=== PATIENT | female | born 1945 | race Caucasian/White ===

== ENCOUNTER 2017-09-18 00:55 | Observation (INO) ==
[2017-09-18] MEDS ORDERED: ALBUTEROL/IPRATROPIUM 2.5mg-0.5mg/3ml NEB IH ONE (01:07)
--- NOTE | 2017-09-18 02:55 | Emergency Department Report ---
SOB HPI - General Chief Complaint: Shortness of Breath/Dyspnea Stated Complaint: Diff Breathing Time Seen by Provider: 09/18/17 01:06 - History of Present Illness 8-year-old female brought in by EMS with acute dyspnea. Patient has a history of emphysema, stop smoking in 2010. She does have reactions to a and went into the barn to feed her horses today to help her daughter. She has been doing well up until this point. She had a breathing treatment at home which did not help. She continued to feel like she was suffocating and called EMS for transport. On the way in they gave her 3 treatments of Xopenex and Solu-Medrol 125 mg IV. Patient was still requiring 8 L nasal cannula/mask and complaining that she felt that she was suffocating. She was unable to get more than one word or 2 words out at a time due to dyspnea. She's had no fever, has not felt sick. - Related Data Allergies Allergy/AdvReac Type Severity Reaction Status Date / Time Penicillins Allergy Severe Anaphylactic Verified 09/18/17 01:11 Shock adhesive tape Allergy Mild Rash Verified 09/18/17 01:11 latex Allergy Mild Redness of Verified 09/18/17 01:11 Skin Review of Systems All systems: reviewed and negative except as stated PFSH Patient Stated Medical History Migraine Yes Chronic Obstructive Pulmonary Yes Disease (COPD) Gastroesophageal Reflux Yes Disease Osteoarthritis Yes - Social History Smoking status: Former smoker second hand exposure: No Substance use type: does not use Physical Exam - Limitations Limitations: no limitations - General General appearance: alert, anxious, in distress (respiratory distress) - Normal Exams: Head:: Normocephalic without trauma Abdomen:: Bowel sounds positive, soft, non-tender, non-distended, no hepatosplenomegaly, masses or bruits noted Neurological:: Patient is alert, and oriented, cranial nerves, motor/sensory/ cerebellar, exams w/o gross deficits, to observation Psychiatric:: Patient exhibits, appropriate attention, emotion and affect - Respiratory Respiratory exam: Present: respiratory distress, wheezes, prolonged expiratory phase - Cardiovascular Cardiovascular exam: Present: normal rhythm, tachycardia Course Vital Signs Temperature 97.6 F 09/18/17 00:55 Pulse Rate 104 H 09/18/17 00:55 Respiratory Rate 24 09/18/17 00:55 Blood Pressure 132/97 H 09/18/17 00:55 Pulse Oximetry 94 09/18/17 00:55 Temperature 97.6 F 09/18/17 00:55 Pulse Rate 97 09/18/17 01:52 Respiratory Rate 20 09/18/17 01:30 Blood Pressure 132/97 H 09/18/17 00:55 Pulse Oximetry 93 09/18/17 01:30 Shortness of Breath/Dyspnea - [facility] Narrative Medical decision making narrative: Peripheral IV with normal saline. DuoNeb treatment given on arrival and as Solu- Medrol had time to work, patient's breathing improved. Chest x-ray, labs and nasal respiratory PCR ordered. White count is normal, CMP is appropriate. Chest x-ray shows no infiltrate, does show emphysematous change. Patient has coronavirus positive PCR. She is still requiring 2 L nasal cannula in order to appropriately oxygenate, and gets short of breath if she talks. I spoke with hospitalist, patient will be admitted for serial IV steroids and breathing treatments as needed. She'll also be given oxygen supplementation. - Lab Data Result diagrams: 09/18/17 01:18 09/18/17 01:18 Lab Results 09/18/17 09/18/17 09/18/17 Range/Units 01:12 01:18 01:18 WBC 7.9 (4.5-11.0) T/MM3 RBC 4.68 (4.00-5.20) M/MM3 Hgb 14.7 (12-16) GM/DL Hct 46.0 (36-46) % MCV 98.3 (80-100) UM3 MCH 31.4 (26-34) UUG MCHC 32.0 (31-37) GM/DL RDW Std Deviation 43.5 (36.9-50.2) FL Plt Count 220 (130-400) T/MM3 MPV 9.1 L (9.4-12.4) UM3 Immature Gran % (Auto) 0.1 (0.0-0.5) % Neut % (Auto) 60.1 (33-66) % Lymph % (Auto) 25.1 (23-45) % [place] % (Auto) 6.7 (0-9.0) % Eos % (Auto) 7.5 H (0-4) % Baso % (Auto) 0.5 (0-2) % Neut # (Auto) 4.7 (1.8-7.7) T/MM3 Lymph # (Auto) 2.0 (1-4.8) T/MM3 [place] # (Auto) 0.5 (0-0.8) T/MM3 Eos # (Auto) 0.6 H (0-0.5) T/MM3 Baso # (Auto) 0.0 (0-0.2) T/MM3 Abs Immat Gran (auto) 0.01 (0.00-0.03) T/MM3 Turbidity < 20 (0-20) Sodium 147 H (134-144) MEQ/L Potassium 3.9 (3.6-5) MEQ/L Chloride 104 (98-107) MEQ/L Carbon Dioxide 27 (22-30) MEQ/L Anion Gap 16 H (5-15) MEQ/L BUN 15.0 (7-17) MG/DL Creatinine 0.7 (0.7-1.2) mg/dL GFR Calculation 83 BUN/Creatinine Ratio 21 (6-26) RATIO Glucose 131 H (65-110) MG/DL Calculated Osmolality 285 H (261-280) MOSM/KG Calcium 9.7 (8.4-10.2) MG/DL Total Bilirubin 0.20 (0.20-1.30) MG/DL Icterus Index < 2 (0-7) AST 32 (14-36) U/L ALT 24 (9-52) U/L Alkaline Phosphatase 95 (38-126) U/L Troponin I 0.017 (0-0.12) ng/ml NT-Pro-B Natriuret Pep 145 (0-175) pg/mL Total Protein 8.1 (6.3-8.2) g/dL Albumin 4.9 (3.5-5.0) g/dL Globulin 3.2 (2.4-3.6) G/DL Albumin/Globulin Ratio 1.5 (1.1-2.2) RATIO Specimen Hemolysis < 15 (0-25) Adenovirus (PCR) Negative (Negative) B.parapertussis DNA PCR Negative (Negative) C. pneumoniae DNA (PCR) Negative (Negative) Coronavirus OC43 (PCR) Negative (Negative) Coronavirus HKU1 (PCR) Detected A (Negative) Coronavirus 229E (PCR) Negative (Negative) Coronavirus NL63 (PCR) Negative (Negative) Human Metapneumovir PCR Negative (Negative) Influenza Type A (PCR) Negative (Negative) Influenza Type B (PCR) Negative (Negative) M. pneumoniae (PCR) Negative (Negative) Parainfluenza 1 (PCR) Negative (Negative) Parainfluenza 2 (PCR) Negative (Negative) Parainfluenza 3 (PCR) Negative (Negative) Parainfluenza 4 (PCR) Negative (Negative) RSV (PCR) Negative (Negative) Entero/Rhino (PCR) Negative (Negative) Disposition Clinical Impression: Acute exacerbation of emphysema, Coronavirus infection Disposition: 02 To [facility] Condition: Improved Referrals: Terence Cook MD [Family Provider] - Time of Disposition: 02:55 - Seen By: physician
[2017-09-18 03:42] VITALS: BMI 20.6
[2017-09-18] MEDS ORDERED: ALBUTEROL 2.5mg/0.5ml (0.5%) NEB AEROSOL PRN (04:03)
[2017-09-18] MEDS ORDERED: METHYLPREDNISOLONE SOD SUCC IV SCH (04:03)
[2017-09-18] MEDS ORDERED: Ipatropium/Albuterol 20/100mcg INHALER (4gm) IH PRN (04:03)
[2017-09-18] MEDS ORDERED: NS IV SCH (04:03)
[2017-09-18] MEDS ORDERED: DOCUSATE SODIUM 100 MG CAPSULE PO PRN (04:03)
[2017-09-18] MEDS ORDERED: ACETAMINOPHEN 325 MG TABLET PO PRN (04:03)
[2017-09-18] MEDS ORDERED: HYDROCODONE/APAP 5mg/325mg TABLET PO PRN (04:03)
[2017-09-18] MEDS ORDERED: ONDANSETRON 4 MG/2 ML INJECTION IVP PRN (04:03)
[2017-09-18] MEDS ORDERED: MORPHINE SULFATE 4mg INJECTION IVP PRN (04:03)
--- NOTE | 2017-09-18 04:21 | History & Physical Report ---
History of Present Illness Date: 09/20/17 Chief complaint: "I thought I was suffocating" HPI: shahram is a pleasant 71-year-old female patient who has known copd and sees dr. jimenez in [place]. she is not normally on oxygen, and she quit smoking 7 years ago. she relates that on friday, she exercised, and helped her daughter with her horses. she began feeling more short of breath with a dry cough at that time. she had difficulty sleeping last night, and her shortness of breath and dyspnea on exertion progressed throughout the day until ems brought her in with an oxygen saturation in the high 70s. she was described as quite dyspneic on presentation, and received solu-medrol and multiple xopenex treatments. she was still requiring oxygen, but her work of breathing had markedly improved with this treatment. she states that she has not completely gotten over an upper respiratory tract infection which began in early august, for which she was treated with antibiotics. she states that she has worked around the horses for a long time , but that her daughter has a new kind of hay for them and she suspects she is allergic to some component in it. in addition, respiratory panel in the emergency department was positive for melton virus. chest x-ray showed only hyperinflation of the lungs. due to her ongoing oxygen requirement and dyspnea , she is admitted for further evaluation and management. Review of Systems - Constitutional Constitutional: Present: as per HPI, fatigue. Absent: anorexia, chills, fever(s ) - Cardiovascular Cardiovascular: Absent: chest pain, palpitations, syncope - Respiratory Respiratory: Present: as per HPI, dyspnea on exertion - Gastrointestinal Gastrointestinal: Absent: change in bowel habits, constipation, diarrhea - Musculoskeletal Musculoskeletal: Present: back pain (arthritis) - Neurological Neurological: Absent: convulsions, focal weakness Past Medical History Patient Stated Medical History Migraine Yes Chronic Obstructive Pulmonary Yes Disease (COPD) Gastroesophageal Reflux Yes Disease Osteoarthritis Yes Depression Yes: Related to spouse passing away Family History Updates: she has a brother with hypertension. her daughter suffers from myasthenia gravis - Social History Smoking status: Former smoker (quit smoking in 2010) Alcohol intake frequency: 3 or more drinks per day (she drinks 2 or 3 glasses of wine per day, 'sometimes more depending on what is going on in the world') Current occupational status: retired ( physical therapist) Social history: she grew [facility] in [facility], and has traveled the [place] Medications Home Medications Medication Instructions Recorded Confirmed Type Calcium Carbonate/Vitamin D3 2 each PO DAILY 09/18/17 09/18/17 History [Calcium 600-Vit D3 800 Tablet] Ipatropium/Albuterol [Combivent 1 puff IH Q4HPRN PRN 09/18/17 09/18/17 History Respimat Inhaler] Magnesium Oxide 500 mg PO DAILY 09/18/17 09/18/17 History Rosuvastatin [Crestor] 1 tab PO HS 09/18/17 09/18/17 History Umeclidinium Brm/Vilanterol Tr 1 puff IH DAILY 09/18/17 09/18/17 History [Anoro Ellipta 62.5-25 Mcg INH] Azithromycin [Zithromax] 1 tab PO DAILY #6 tab 09/19/17 Rx predniSONE [Prednisone] 20 mg PO WB #15 tab 09/19/17 Rx Allergies Allergy/AdvReac Type Severity Reaction Status Date / Time Penicillins Allergy Severe Anaphylactic Verified 09/18/17 01:11 Shock adhesive tape Allergy Mild Rash Verified 09/18/17 01:11 latex Allergy Mild Redness of Verified 09/18/17 01:11 Skin Exam Vital Signs: Temperature 96.9 F 09/18/17 03:37 Pulse Rate 87 09/18/17 03:37 Respiratory Rate 24 09/18/17 03:37 Blood Pressure 142/68 H 09/18/17 03:37 Pulse Oximetry 85 L 09/18/17 03:55 Height/Weight/BMI: Height 5 ft 5 in Weight 56.2 kg Body Mass Index 20.6 - Constitutional Present: mild distress ( due to increased work of breathing) - Routine HEENT Exam Head: Present: normocephalic, atraumatic Eye: Present: EOMI, PERRL - Routine Neck Exam Present: supple, full ROM. Absent: JVD - Routine Respiratory Exam Present: accessory muscle use, decreased breath sounds, prolonged expiratory phase, wheezes, diminished air movement - Routine Cardiovascular Exam Present: RRR, no murmur - Routine Abdominal Exam Present: soft, normoactive bowel sounds - Routine Skin Exam Present: intact. Absent: rash - Routine Neurological Exam Present: alert, oriented X3, CN II-XII intact. Absent: sensory deficit, motor deficit - Routine Psychiatric Exam Present: normal affect, normal thought process - Additional findings Additional findings: examination performed using telemedicine equipment with the assistance of the bedside nurse Results - Labs CBC & Chem 7: 09/18/17 01:18 09/18/17 01:18 - Imaging and Cardiology Chest x-ray Status: image reviewed by me ( hyperinflation, no infiltrates) Assessment and Plan (1) Acute exacerbation of emphysema Status: Acute (2) Coronavirus infection Status: Acute Assessment and Plan: shahram is admitted for continued supplemental oxygen, nebulized breathing treatments, and intravenous solu-medrol. she understands that she may be allergic to some relatively new antigen on her daughter's farm, and also that she has an acute viral respiratory illness. she is improved somewhat with treatment thus far, will provide further symptomatic supportive and diagnostic cares as the current workup, or any changes in her clinical scenario, indicate. the plan of care was discussed with the patient at the time of my evaluation and she expressed understanding and desired to proceed. Addendum in-house hospitalist note: Seen and examined patient on same day as the above note by Dr. Becker. Agree with history, physical, assessment and plan. Comprehensive physical findings correlate to the above note. HPI: patients dyspnea has not been associated with malaise, showing significant quick reversibility with the use of nebulizers. ROS: agree with above. No malaise or systemic issues indicates sepsis Medical surgical social and family history: Physical exam: alert oriented, no apparent distress on 2 L of oxygen. Chest auscultation has wheezing throughout lung castelan bilaterally and slight decrease of air entry, patient does purse lip breathing. No peripheral edema Assessment and plan: have worked with the patient, restarted steroids and made scheduled breathing treatments as she is not asking for them. She is eager to return home and mobilizes quite well but her oxygen saturations drop into the high 80s and she does become quite ordered breath. She appears to be 1 L oxygen dependent by evening time. Will repeat her oxygen tolerance tomorrow and see if she is proved enough to go home, failing this she may require home oxygen she does have underlying COPD baseline Documented on Dragon speech to text. Efforts to correct speech recognition errors performed, but variation may exist DVT Prophylaxis: SCD's - Physician Narrative Narrative: Date: 09/18/17 Time: 416 Hospital Course Summary Disclaimer: The visit summary below is not to be considered part of the above Progress Note.
[2017-09-18] MEDS: SALINE FLUSH 10ml SYRINGE IVF PRN (04:31)
[2017-09-18] MEDS: MAGNESIUM OXIDE 400 MG PO SCH ×2 (07:10→08:22)
--- NOTE | 2017-09-18 07:34 | XRay Report ---
INDICATION: dyspnea PROCEDURE: CHEST 2-VIEWS UPRIGHT (PA & LAT) Encounter: Initial COMPARISON: July 22, 2017 Findings: The lungs are stable in appearance without new focal airspace consolidation. Hyperinflation and changes of COPD. There is no pleural effusion or pneumothorax. The heart size, pulmonary vascularity and mediastinal contours are unchanged. IMPRESSION: Stable appearance of the chest without acute cardiopulmonary disease. .
[2017-09-18] MEDS: FEXOFENADINE 180 MG TABLET PO SCH (08:21)
[2017-09-18] MEDS ORDERED: IBUPROFEN 400 MG TABLET PO PRN (10:55)
[2017-09-18] MEDS: ALBUTEROL 2.5mg/3ml (0.083%) NEB AEROSOL SCH ×3 (11:44→15:00)
[2017-09-18] MEDS: METHYLPREDNISOLONE SOD SUCC 125mg/2ml INJECTION IVP SCH ×2 (12:15→18:26)
[2017-09-18] MEDS: VILANTEROL TR PO SCH (13:02)
[2017-09-18] MEDS: UMECLIDINIUM BRM PO SCH (13:02)
[2017-09-18] MEDS ORDERED: Ipatropium/Albuterol 20/100mcg INHALER (4gm) IH SCH (13:15)
[2017-09-18] MEDS ORDERED: ALBUTEROL 2.5mg/3ml (0.083%) NEB AEROSOL PRN (15:14)
[2017-09-18] MEDS: ALBUTEROL/IPRATROPIUM 2.5mg-0.5mg/3ml NEB AEROSOL SCH ×2 (19:41→23:05)
[2017-09-18] MEDS ORDERED: ROSUVASTATIN 20 MG PO SCH (21:00)
[2017-09-19] MEDS: METHYLPREDNISOLONE SOD SUCC 125mg/2ml INJECTION IVP SCH ×2 (01:31→08:51)
[2017-09-19] MEDS: SALINE FLUSH 10ml SYRINGE IVF PRN (01:31)
[2017-09-19] MEDS: ALBUTEROL/IPRATROPIUM 2.5mg-0.5mg/3ml NEB AEROSOL SCH ×3 (03:30→12:58)
[2017-09-19 07:16] VITALS: BP 127/62; TEMP 96.9
[2017-09-19 07:34] VITALS: RESP 18
[2017-09-19] MEDS: FEXOFENADINE 180 MG TABLET PO SCH (08:49)
[2017-09-19] MEDS: MAGNESIUM OXIDE 400 MG PO SCH (08:49)
[2017-09-19 11:12] VITALS: PULSE 86
--- NOTE | 2017-09-19 11:50 | Discharge Summary ---
Discharge Information Date of admission: 09/18/17 03:11 Anticipated date of discharge: 09/19/17 Attending Physician: Antony Hedrick MD Primary care physician: Terence Cook MD - Discharge Diagnosis (1) COPD exacerbation Status: Acute (2) Coronavirus infection Status: Acute Chronic conditions, stable on discharge: GERD OA Depression - Radiology Radiology: Date of Exam: 09/18/17 PROCEDURE: CHEST 2-VIEWS UPRIGHT (PA & LAT) Findings: The lungs are stable in appearance without new focal airspace consolidation. Hyperinflation and changes of COPD. There is no pleural effusion or pneumothorax. The heart size, pulmonary vascularity and mediastinal contours are unchanged. IMPRESSION: Stable appearance of the chest without acute cardiopulmonary disease. History of Present Illness HPI: shahram is a pleasant 71-year-old female patient who has known copd and sees dr. brar in [place]. she is not normally on oxygen, and she quit smoking 7 years ago. she relates that on friday, she exercised, and helped her daughter with her horses. she began feeling more short of breath with a dry cough at that time. she had difficulty sleeping last night, and her shortness of breath and dyspnea on exertion progressed throughout the day until ems brought her in with an oxygen saturation in the high 70s. she was described as quite dyspneic on presentation, and received solu-medrol and multiple xopenex treatments. she was still requiring oxygen, but her work of breathing had markedly improved with this treatment. she states that she has not completely gotten over an upper respiratory tract infection which began in early august, for which she was treated with antibiotics. she states that she has worked around the horses for a long time , but that her daughter has a new kind of hay for them and she suspects she is allergic to some component in it. in addition, respiratory panel in the emergency department was positive for melton virus. chest x-ray showed only hyperinflation of the lungs. due to her ongoing oxygen requirement and dyspnea , she is admitted for further evaluation and management. Objective Vital signs: Temperature 96.9 F 09/19/17 07:14 Pulse Rate 86 09/19/17 11:10 Respiratory Rate 18 09/19/17 10:53 Blood Pressure 127/62 09/19/17 07:14 Pulse Oximetry 94 09/19/17 11:10 Height/Weight/BMI: Height 1.65 m Weight 56 kg Body Mass Index 20.6 - Constitutional Present: no acute distress, well nourished, well developed - Routine HEENT Exam Head: Present: normocephalic Eye: Absent: conjunctival icterus, scleral injection ENT: Present: oropharynx clear - Routine Respiratory Exam Present: decreased breath sounds, CTA bilaterally - Routine Cardiovascular Exam Present: RRR, S1, S2 - Routine Abdominal Exam Present: soft, normoactive bowel sounds - Routine Extremities Exam Present: no edema, pulses intact - Routine Skin Exam Present: intact, dry, warm - Routine Neurological Exam Present: alert, oriented X3, moving all extremities, normal speech - Routine Psychiatric Exam Present: normal affect, normal thought process, cooperative Hospital Course This is a general summary of the patient's hospital course. For more details refer to the complete medical record. Hospital course: Edwige was admitted to observation status on 09/18/17 for COPD exacerbation and coronavirus infection. Admission labs showed a relatively normal CBC, and stable CMP with the exception of mildly elevated Na at 147. She was started on routine DuoNeb treatments, and IV Solu-Medrol. Initially she was requiring 4L of oxygen, but over the next day she was able to be weaned off of oxygen while at rest. RT did an ambulatory oximetry, and while her sats dropped to 86% during ambulation, she refused using oxygen at home so this was not prescribed at discharge. She was sent home with Rx prednisone taper and a Z-pack. Pt verbalized an understanding and is well aware of the risks of declining supplemental oxygen. She does have a pulse oximeter at home. She plans on calling Dr. Brar's office to arrange a f/u appt. Also recommended f/u with Dr. Cook in 1 week. Discharge Plan - Discharge Disposition Discharge Date: 09/19/17 Disposition: 01 Discharged Home, Self-Care *Condition: Improved Reason For Visit (Visit label in EMR): SOA - Discharge Medications *Discharge Medications: New predniSONE [Prednisone] 20 mg PO WB #15 tab Azithromycin [Zithromax] 1 tab PO DAILY #6 tab Continue Calcium Carbonate/Vitamin D3 [Calcium 600-Vit D3 800 Tablet] 2 each PO DAILY Ipatropium/Albuterol [Combivent Respimat Inhaler] 1 puff IH Q4HPRN PRN PRN Reason: Dyspnea Rosuvastatin [Crestor] 1 tab PO HS Umeclidinium Brm/Vilanterol Tr [Anoro Ellipta 62.5-25 Mcg INH] 1 puff IH DAILY Magnesium Oxide 500 mg PO DAILY - Discharge Packet/Instructions *Diet: REGULAR *Activity: Increase activity level slowly. Stop and rest if you feel short of breath. *Pain Management/Treatment: Tylenol if needed. *Wound Care: N/A *Expected Signs/Symptoms: You may feel tired from the night in the hospital. You may have intermittent shortness of breath, sinus drainage, and cough until your body recovers from this exacerbation. *Notify Physician if: Fever, increased shortness of breath, chest pain, passing out, low oxygen readings (persistently 88% or less), confusion or somnolence, or any new concerns. *During Business Hours Contact: Dr. Brar or Dr. Cook. *After Business Hours Contact: The on-call providers for Dr. Brar and/or Dr. Cook. *Pending Lab/Results: No Pending Lab - Referrals/Follow Up *Referrals/Follow Up: Claudy Brar MD [Physician] - 1 Week Terence Cook MD [Family Provider] - 1 Week - Patient Handouts Patient Handouts: Shortness of Breath (GEN) - Dismissal Complete Discharge Instructions are:: Complete Physician Narrative - Narrative Attestation Narrative: Date: 09/19/17 Time: 8794
[2017-09-19] MEDS: VILANTEROL TR PO SCH (13:00)
[2017-09-19] MEDS: UMECLIDINIUM BRM PO SCH (13:00)
[2017-09-19 13:02] VITALS: O2SAT 95
== END 2017-09-19 13:20 | disposition home or self-care (01) ==
LOC: MED 00:55 → ED 00:55 → SUATTDRO 03:11 → MED 03:35
PROVIDERS: ADMIT Internal Medicine; ATTEND Family Medicine

== ENCOUNTER 2017-12-30 10:53 | Inpatient (IN) ==
[2017-12-30] MEDS ORDERED: ACETAMINOPHEN 325 MG TABLET PO PRN (12:33)
[2017-12-30] MEDS ORDERED: SENNA + DOCUSATE TABLET PO PRN (12:33)
[2017-12-30] MEDS ORDERED: ONDANSETRON 4 MG/2 ML INJECTION IVP PRN (12:33)
--- NOTE | 2017-12-30 13:02 | History & Physical Report ---
History of Present Illness Date: 12/30/17 Chief complaint: SOA HPI: Edwige Galarza is a 72-year-old woman with COPD Gold stage A. She had been in good health recently, and returned from [facility] on December 23. She worked outside, tending to her plants the following couple of days. By December 26, she began to feel short of breath, and by December 27, she was unable to perform even light activities without becoming short of breath. She states that she "became a hermit" and stayed in the house because she suspected that wheat harvest triggered her shortness of breath and wheezing. Every time she tried using Combivent she began coughing, so she hasn't been able to control any of her symptoms at home. She also reports feeling lightheaded and vertiginous, however , only when she has been at rest. She has not noticed these symptoms when she is upright. She denies any syncope. She complains of a frontal headache. She has a cough that is nonproductive. She denies any sinus drainage or congestion. No fever but has had some chills. She noticed left ear fullness while she was in [facility] and instilled a couple drops of rubbing alcohol. Her activity level continued to decline because of her shortness of breath. She tried to go to nondenominational on Friday, but had to leave early. She states that at night she props herself up on 5 pillows in order to sleep. She denies any chest pain. She denies visual changes, though states that she recently had new glasses prescribed. She denies any abdominal pain, nausea, vomiting, diarrhea or constipation and states her appetite has been preserved. She denies any urinary changes. She states that last week she removed a small tick from her scalp but she is unsure of duration of time. She also woke up with a small bite to her left groin, which is already improving. She denies any injuries or wounds otherwise. She denies easy bruising or bleeding. She saw Dr. Brar on . Her room air sat was 83% and after being placed on 2 L it only improved to 85%. She was therefore started on 4 L of oxygen. She does not use oxygen at home. She was markedly dyspneic and tachypneic. At that time, Dr. Brar contacted Dr. Lotus and the patient was admitted to inpatient status for COPD exacerbation. Length of stay is expected to exceed 2 overnights. Review of Systems All systems PM: 10-point ROS was reviewed, no additional remarkable complaints except - Constitutional Constitutional: Present: as per HPI - EENMT Eyes: Present: as per HPI Ears: Present: as per HPI Balance: Present: as per HPI Nose: Absent: allergies Mouth/Throat: Present: dry mouth - Cardiovascular Cardiovascular: Present: dyspnea on exertion, orthopnea. Absent: chest pain Vascular: Absent: pedal edema - Respiratory Respiratory: Present: as per HPI - Gastrointestinal Gastrointestinal: Present: as per HPI - Genitourinary Genitourinary: Present: as per HPI - Musculoskeletal Musculoskeletal: Present: as per HPI, other (chronic right shoulder pain from an old rotator cuff injury) - Integumentary/Breasts Integumentary: Present: as per HPI - Neurological Neurological: Present: as per HPI - Psychiatric Psychiatric: Absent: depression - Endocrine Endocrine: Absent: palpitations - Hematologic/Lymphatic Hematologic/Lymphatic: Present: as per HPI - Allergic/Immunologic Allergic/Immunologic: Absent: seasonal rhinorrhea Past Medical History Medical History Updates: COPD. GERD. OA Surgical History: knee surgery. breast lumpectomy Family History Updates: Father - stroke, dementia. Mother - COPD, HTN, age 83 of [place]. Brother - HTN. Daughter - myasthenia gravis Family History: As Above - Social History Smoking status: Former smoker Packs per day: 1.5 Packs-years: 50 Substance use type: does not use Alcohol intake frequency: a few times a week (wine) Medications Home Medications Medication Instructions Recorded Confirmed Type Ipatropium/Albuterol [Combivent 1 puff IH Q4HPRN PRN 09/18/17 12/30/17 History Respimat Inhaler] Magnesium Oxide 500 mg PO DAILY 09/18/17 09/18/17 History Rosuvastatin [Crestor] 1 tab PO HS 09/18/17 12/30/17 History Umeclidinium Brm/Vilanterol Tr 1 puff IH DAILY 09/18/17 12/30/17 History [Anoro Ellipta 62.5-25 Mcg INH] Calcium 1,200 mg PO DAILY 12/30/17 12/30/17 History Cholecalciferol (Vitamin D3) 1,000 unit PO DAILY 12/30/17 12/30/17 History [Vitamin D3] DiphenhydrAMINE [Benadryl] 1 cap PO Q6H PRN 12/30/17 12/30/17 History Ibuprofen 400 tab PO Q4H PRN 12/30/17 12/30/17 History Allergies Allergy/AdvReac Type Severity Reaction Status Date / Time Penicillins Allergy Severe Anaphylactic Verified 12/30/17 11:37 Shock adhesive tape Allergy Mild Rash Verified 12/30/17 11:37 latex Allergy Mild Redness of Verified 12/30/17 11:37 Skin Exam Vital Signs: Pulse Rate 99 12/30/17 11:13 Respiratory Rate 28 H 12/30/17 11:13 Blood Pressure 169/79 H 12/30/17 11:13 Pulse Oximetry 95 12/30/17 11:13 Height/Weight/BMI: Height 1.68 m Weight 56 kg Body Mass Index 19.9 - Constitutional Present: moderate distress, thin - Routine HEENT Exam Head: Present: normocephalic Eye: Present: PERRL. Absent: conjunctival icterus, scleral injection ENT: Present: mucous membranes moist, dentition normal, TM's clear bilaterally ( mild left effusion and mild canal irritation) - Routine Neck Exam Present: supple. Absent: lymphadenopathy - Routine Respiratory Exam Present: accessory muscle use, dyspnea, prolonged expiratory phase, wheezes, diminished air movement - Routine Cardiovascular Exam Present: RRR, S1, S2 - Routine Abdominal Exam Present: soft, normoactive bowel sounds, non distended, non tender - Routine Extremities Exam Present: no edema. Absent: calf tenderness - Routine Back/Spine/Pelvis Exam Back/Spine: Present: full ROM - Routine Skin Exam Present: intact, dry, warm Comments: approx. 2 cm erythematous lesion to left inguinal area with smaller central clearing. Minimal swelling, nontender. - Routine Neurological Exam Present: alert, oriented X3, CN II-XII intact, moving all extremities, vision grossly intact, hearing grossly intact, normal speech. Absent: sensory deficit , motor deficit, altered mental status, facial asymmetry - Routine Psychiatric Exam Present: normal affect, normal thought process, cooperative Results - Labs CBC & Chem 7: 12/30/17 13:11 12/30/17 13:11 Assessment and Plan (1) COPD exacerbation Current visit: No Status: Acute Assessment and Plan: Assessment Acute hypoxic respiratory failure COPD with exacerbation GOLD stage A, FV1 59% predicted Lightheadedness, mild left ear effusion Insect bite - left groin GERD OA Plan Admit, inpatient status, for hypoxia with room air sats of 83% and new need for O2. Start Solu-Medrol, routine DuoNebs, acapella. CXR, basic labs ordered. Lightheadedness could be secondary to hypoxia - monitor; may need to provide IVF. Mucinex DM PRN. Discussed with Dr. Gautam. Dr. Brar aware of admission. PCP: Dr. Lobato. DVT Prophylaxis: SCD's Resuscitation Status: Full Code - Physician Narrative Physician: Lata Gautam MD Narrative: Date: 12/30/17 Time: 1630 I have independently evaluated and examined this patient. I reviewed the chart, the patient's history, and the FIRMWARE SOFTWARE VERIFICATION ENGINEER/PA's documented findings as above. We discussed and formulated the assessment and plan as above with additions as below: Mrs. Galarza has had increased respiratory symptoms characterized by dyspnea/ tightness/and cough over the past 3-4 days as noted. Symptoms have become debilitating and she has not been able to effectively inhale rescue MDIs. She presented to Dr. Brar's office this morning in moderate respiratory distress and was subsequently hospitalized. In addition to past history described above she has history of hyperlipidemia treated with statin. Patient was in moderate respiratory distress when seen around noon today and able to speak in only one or 2 words. Inspiration triggered cough and airflow was very poor with faint diffuse wheezing. Pursed lip breathing present. Regular rhythm with tachycardia, no edema. Neck veins not distended. CBC/BMP unremarkable. Chest x-ray reviewed by myself- consistent with COPD with flattening of diaphragms, small calcified nodule right lower lobe-previously seen. No evidence of infiltrate or vascular edema. Discussed with RT-aggressive beta agonists, IV/inhaled steroids. Did not tolerate trial of Vapotherm and will likely require BiPAP for rest overnight unless respirations are significantly improved after additional treatments. Discussed with Dr. Brar prior to admission and after arrival. Hospital Course Summary Disclaimer: The visit summary below is not to be considered part of the above Progress Note. Hospital Course: 12/30 Admit, inpatient status, for hypoxia with room air sats of 83% and new need for O2. Start Solu-Medrol, routine DuoNebs, acapella. CXR, basic labs ordered. Lightheadedness could be secondary to hypoxia - monitor; may need to provide IVF. Discussed with Dr. Gautam. Dr. Brar aware of admission.
[2017-12-30] MEDS: METHYLPREDNISOLONE SOD SUCC 125mg/2ml INJECTION IVP SCH ×3 (13:16→20:38)
[2017-12-30] MEDS: IBUPROFEN 600 MG TABLET PO PRN (13:24)
[2017-12-30] MEDS ORDERED: GUAIFENESIN/D-METHORPHAN 600mg/30mg TABLET PO PRN (14:01)
--- NOTE | 2017-12-30 14:06 | XRay Report ---
INDICATION: hypoxia PROCEDURE: CHEST 2-VIEWS UPRIGHT (PA & LAT) Encounter: Initial COMPARISON: September 18, 2017 FINDINGS: The lungs are mildly hyperinflated, but clear without evidence of focal abnormal airspace opacity. There is no pleural effusion or pneumothorax. Chronic calcified nodule in the right lateral midlung. The heart size, mediastinal contours and pulmonary vascularity are within normal limits. There is no significant skeletal abnormality. IMPRESSION: No acute cardiopulmonary disease. .
[2017-12-30] MEDS ORDERED: ALBUTEROL/IPRATROPIUM 2.5mg-0.5mg/3ml NEB AEROSOL SCH (15:00)
[2017-12-30] MEDS ORDERED: ALBUTEROL 2.5mg/3ml (0.083%) NEB AEROSOL PRN (15:27)
[2017-12-30] MEDS ORDERED: INSULIN ASPART 100unit/ml INJECTION SQ PRN (16:33)
[2017-12-30] MEDS: ALBUTEROL/IPRATROPIUM 2.5mg-0.5mg/3ml NEB AEROSOL SCH ×2 (16:50→20:16)
[2017-12-30] MEDS: BUDESONIDE INH.SOLN 0.5mg/2ml NEB AEROSOL SCH (20:16)
[2017-12-30] MEDS: ROSUVASTATIN 20 MG TABLET PO SCH (20:58)
[2017-12-31] MEDS: ALBUTEROL/IPRATROPIUM 2.5mg-0.5mg/3ml NEB AEROSOL SCH ×7 (01:07→23:08)
[2017-12-31] MEDS: METHYLPREDNISOLONE SOD SUCC 125mg/2ml INJECTION IVP SCH ×5 (04:57→20:23)
[2017-12-31] MEDS: BUDESONIDE INH.SOLN 0.5mg/2ml NEB AEROSOL SCH ×2 (08:44→19:27)
--- NOTE | 2017-12-31 08:45 | Pulmonology Consult Note ---
History of Present Illness Consult date: 12/31/17 Requesting physician: Lata Gautam Reason for consult: COPD Chief complaint: shortness of breath History of present illness: This is a 72 year old lady who presented 12/30/17 with shortness of breath due to COPD exacerbation. Reported by patient. Quality: dyspnea; tightness; shortness of breath at rest and on exertion with walking or carrying things. Severity: severe; limits activity; oxygen dependent Context: after recent long trip to [facility], returned 3 days ago; walking on level ground; walking up inclines; walking up stairs, even at rest Pulmonary Disease History: COPD. She has moderate COPD FV1 59% predicted, CAT score was 4 last visit (GOLD stage A, but she has exacerbated badly at this time Alleviating Factors: not fully relieved with rest Aggravating Factors: activity Associated Symptoms: no chest pain; no wheezing; no sputum production, but coughing has cough and congestion since going on her trip to [facility]. She returned around December 23. Has worsening shortness of breath O2 sats are 83% on RA. She states she is unable to use her inhalers due to dyspnea. Doesn't feel like she can get a full breath. Trying to use her nebulizer 4 times a day. She thinks that she may be allergic to the cutting of wheat Review of Systems All systems: reviewed and no additional remarkable complaints except as stated PFSH Patient Stated Medical History Migraine Yes: off and on Bronchitis Yes: history of Chronic Obstructive Pulmonary Yes Disease (COPD) Gastroesophageal Reflux Yes Disease Osteoarthritis Yes Depression Yes: Related to spouse passing away Medical History Updates: COPD. GERD. OA Surgical History: knee surgery. breast lumpectomy Family History Updates: Father - stroke, dementia. Mother - COPD, HTN, age 83 of [place]. Brother - HTN. Daughter - myasthenia gravis - Social History Smoking status: Former smoker Packs per day: 1.5 Packs-years: 50 second hand exposure: No Substance use type: does not use Alcohol intake frequency: a few times a week (wine) Current occupational status: retired ( physical therapist) Medications Home Medications Medication Instructions Recorded Confirmed Type Ipatropium/Albuterol [Combivent 1 puff IH Q4HPRN PRN 09/18/17 12/30/17 History Respimat Inhaler] Magnesium Oxide 500 mg PO DAILY 09/18/17 09/18/17 History Rosuvastatin [Crestor] 1 tab PO HS 09/18/17 12/30/17 History Umeclidinium Brm/Vilanterol Tr 1 puff IH DAILY 09/18/17 12/30/17 History [Anoro Ellipta 62.5-25 Mcg INH] Calcium 1,200 mg PO DAILY 12/30/17 12/30/17 History Cholecalciferol (Vitamin D3) 1,000 unit PO DAILY 12/30/17 12/30/17 History [Vitamin D3] DiphenhydrAMINE [Benadryl] 1 cap PO Q6H PRN 12/30/17 12/30/17 History Ibuprofen 400 tab PO Q4H PRN 12/30/17 12/30/17 History Allergies Allergy/AdvReac Type Severity Reaction Status Date / Time Penicillins Allergy Severe Anaphylactic Verified 12/30/17 11:37 Shock adhesive tape Allergy Mild Rash Verified 12/30/17 11:37 latex Allergy Mild Redness of Verified 12/30/17 11:37 Skin Exam Vital signs: Temperature 97.4 F 12/31/17 07:24 Pulse Rate 107 H 12/31/17 08:19 Respiratory Rate 16 12/31/17 07:24 Blood Pressure 123/65 12/31/17 07:24 Pulse Oximetry 93 12/31/17 08:19 - Constitutional mild distress - Routine HEENT Exam Head: Present: normocephalic, atraumatic Eye: Absent: conjunctival icterus ENT: Present: mucous membranes moist - Routine Neck Exam Present: supple. Absent: JVD - Routine Respiratory Exam Present: accessory muscle use, prolonged expiratory phase, wheezes - Routine Cardiovascular Exam Present: RRR - Routine Abdominal Exam Present: soft - Routine Extremities Exam Absent: cyanosis, clubbing, edema - Routine Skin Exam Present: intact. Absent: rash - Routine Neurological Exam Present: alert, oriented X3 Results - Laboratory Findings CBC and BMP: 12/30/17 13:11 12/31/17 04:13 Abnormal lab findings: Abnormal Labs 12/30/17 12/31/17 13:11 04:13 Lymph % (Auto) 22.1 L Gall[place] % (Auto) 10.2 H Eos % (Auto) 13.9 H Eos # (Auto) 0.9 H Creatinine 0.6 L Glucose 179 H - Diagnostic Findings Chest x-ray: report reviewed, image reviewed Assessment and Plan (1) Acute hypoxemic respiratory failure Status: Acute Assessment and plan: presented with acute hypoxemic respiratory failure. Now on Vapotherm 30 lpm FIO2 30%. Given normal CXR, I suggest checking a D Dimer. If positive, will order CTA chest to rule out PE. Wean O2 as tolerated. She is not on continuous O2 at home Current Visit: Yes (2) COPD exacerbation Status: Acute Assessment and plan: Agree with nebulized budesonide BID, Solumedrol. We can wean to 60 q6H today. Agree with empirc doxycycline Neb albuterol/iprat q4h. wean O2 as tolerated. Current Visit: No - Time Spent With Patient Total time spent is greater than 50% in coordination of care (as documented) at patient's floor/unit and/or counseling patient: 25 - 35 minutes
--- NOTE | 2017-12-31 12:04 | Progress Note ---
- Date 12/31/17 Subjective: Edwige feels much better today, even though she didn't sleep much last night ( steroids kept her awake). She was smiling and pleased to report that she can "talk" today - yesterday she was limited to 2 words before becoming SOA, and today she can converse easily. She has a cough that is occasionally productive with yellow/brown sputum - normally she doesn't cough. She had a bath in bed this morning, and sat up on the side of the bed which felt good but left her tired and SOA. She'd really like to start walking today to ensure that she will be strong enough to go home. She c/o constipation and requests MiraLax. Also notes a dry throat and asked permission for her daughter to bring in throat lozenges. Objective Vital signs: Temperature 97.4 F 12/31/17 07:24 Pulse Rate 107 H 12/31/17 08:19 Respiratory Rate 24 12/31/17 11:17 Blood Pressure 123/65 12/31/17 07:24 Pulse Oximetry 97 12/31/17 11:17 Height/Weight/BMI: Height 1.68 m Weight 59.8 kg Body Mass Index 19.9 - Constitutional Present: no acute distress, well nourished, well developed, thin - Routine HEENT Exam Head: Present: normocephalic Eye: Present: PERRL. Absent: conjunctival icterus, scleral injection ENT: Present: mucous membranes moist, oropharynx clear - Routine Respiratory Exam Present: wheezes (better air movment and reduced wheezing compared to yesterday) - Routine Cardiovascular Exam Present: RRR, S1, S2 - Routine Abdominal Exam Present: soft, normoactive bowel sounds, non distended, non tender - Routine Extremities Exam Present: no edema - Routine Back/Spine/Pelvis Exam Back/Spine: Absent: vertebral tenderness - Routine Musculoskeletal Exam Musculoskeletal: Present: moving extremities well - Routine Skin Exam Present: intact, dry, warm - Routine Neurological Exam Present: alert, oriented X3, CN II-XII intact, moving all extremities, vision grossly intact, hearing grossly intact, normal speech. Absent: sensory deficit , motor deficit, altered mental status, facial asymmetry - Routine Psychiatric Exam Present: normal affect, normal thought process, cooperative Results - Labs CBC & Chem 7: 12/30/17 13:11 12/31/17 04:13 Assessment and Plan (1) COPD exacerbation Current visit: No Status: Acute Assessment and Plan: Assessment Acute hypoxic respiratory failure COPD with exacerbation GOLD stage A, FV1 59% predicted Lightheadedness, mild left ear effusion Tick exposure and Insect bite - occiput/left groin GERD OA Plan Improving, currently on vapotherm. Steroids decreased per pulm. Continue nebs. Continue to cover for COPD exac and tick exposure with Doxy, started 12/30/17. CBC, BMP unremarkable. MiraLax added for constipation. Increase activity as tolerated. Resuscitation Status: Full Code - Physician Narrative Physician: Lata Gautam MD Narrative: Date: 12/31/17 Time: 0 I have independently evaluated and examined this patient. I reviewed the chart, the patient's history, and the LOCOMOTIVE MECHANIC APPRENTICE/PA's documented findings as above. We discussed and formulated the assessment and plan as above with additions as below: Mrs. Galarza reports significant improvement in dyspnea and exertional dyspnea. She was able to walk in the halls earlier requiring 6 L high flow oxygen which the patient found frustrating because she's never required oxygen before. Apparently her required oxygen at home prior to his so she views oxygen negatively. NAD, alert, talkative Respirations nonlabored, good airflow, breath sounds clear except single faint wheeze heard in the right upper lung field posteriorly Regular rhythm, S1 and S2 without tachycardia Improving rapidly, continue Vapotherm. Solu-Medrol dose reduced to 62.5 every 6 hours. Anticipate conversion to oral steroids tomorrow. Hospital Course Summary Disclaimer: The visit summary below is not to be considered part of the above Progress Note. Hospital Course: 12/30 Admit, inpatient status, for hypoxia with room air sats of 83% and new need for O2. Start Doxy, Solu-Medrol, routine DuoNebs, acapella. Lightheadedness could be secondary to hypoxia - monitor; may need to provide IVF. 12/31 Improving, currently on vapotherm. Steroids decreased per pulm. Continue nebs. Continue to cover for COPD exac and tick exposure with Doxy, started 12/30/17. MiraLax added for constipation. Increase activity as tolerated.
[2017-12-31] MEDS: POLYETHYL GLYCOL 3350 17gm PACKET PO SCH (13:04)
[2017-12-31] MEDS ORDERED: SALINE FLUSH 10ml SYRINGE IVF PRN (15:30)
[2017-12-31] MEDS: ROSUVASTATIN 20 MG TABLET PO SCH (20:24)
[2017-12-31] MEDS ORDERED: ZOLPIDEM 5 MG TABLET PO PRN (23:06)
[2018-01-01] MEDS: METHYLPREDNISOLONE SOD SUCC 125mg/2ml INJECTION IVP SCH ×2 (02:23→08:59)
[2018-01-01] MEDS: ALBUTEROL/IPRATROPIUM 2.5mg-0.5mg/3ml NEB AEROSOL SCH ×5 (04:46→20:41)
[2018-01-01] MEDS: BUDESONIDE INH.SOLN 0.5mg/2ml NEB AEROSOL SCH ×2 (08:25→20:41)
[2018-01-01] MEDS: POLYETHYL GLYCOL 3350 17gm PACKET PO SCH (08:59)
--- NOTE | 2018-01-01 10:33 | Progress Note ---
- Date 01/01/18 Subjective: Edwige feels much better. She does not feel short of breath at rest, and when she 's ambulating in the halls she's careful not to venture too far from her room in case she develops dyspnea. She is currently on 6L of oxygen. She also rested very well last night after taking an Ambien. She is very motivated and doing IS and acapella numerous times per day. She denies dizziness. She has a good appetite and denies nausea. Still no BM, but prefers to continue MiraLAX only. I asked about her comfort level going home with oxygen - she immediately became upset and started crying b/c it brought back memories of her dying at home last January, and the significant stress home oxygen placed on her, as it was not covered by insurance. She would strongly prefer not going home with oxygen, but if it's necessary, she would consent. Objective Vital signs: Temperature 98.1 F 01/01/18 07:00 Pulse Rate 83 01/01/18 07:00 Respiratory Rate 20 01/01/18 08:26 Blood Pressure 123/65 01/01/18 07:00 Pulse Oximetry 96 01/01/18 10:22 Height/Weight/BMI: Height 1.68 m Weight 57.5 kg Body Mass Index 19.9 - Constitutional Present: well nourished, well developed, thin - Routine HEENT Exam Head: Present: normocephalic Eye: Present: PERRL. Absent: conjunctival icterus, scleral injection - Routine Respiratory Exam Present: wheezes (good air movement with faint wheezes heard b/l) - Routine Cardiovascular Exam Present: RRR, S1, S2 - Routine Abdominal Exam Present: soft, normoactive bowel sounds, non distended, non tender - Routine Extremities Exam Present: no edema - Routine Back/Spine/Pelvis Exam Back/Spine: Present: full ROM - Routine Musculoskeletal Exam Musculoskeletal: Present: moving extremities well - Routine Skin Exam Present: intact, dry, warm - Routine Neurological Exam Present: alert, oriented X3, CN II-XII intact, normal speech - Routine Psychiatric Exam Present: normal affect, normal thought process, cooperative Comments: see HPI Results - Labs CBC & Chem 7: 12/30/17 13:11 12/31/17 04:13 Assessment and Plan (1) COPD exacerbation Current visit: No Status: Acute Assessment and Plan: Assessment Acute hypoxic respiratory failure COPD with exacerbation GOLD stage A, FV1 59% predicted Lightheadedness, mild left ear effusion Tick exposure and Insect bite - occiput/left groin GERD OA Plan Respiratory status improving. Vapotherm has been dc'd, currently on 6L of O2 which is being weaned down. Continue Steroids, nebs. Given the extreme anxiety/emotional distress that home O2 would create for her, it may be in her best interest to wean her off oxygen prior to discharge. Continue to cover for COPD exac and tick exposure with Doxy, started 12/30/17. MiraLax for constipation. Senna Plus/MOM also available. Resuscitation Status: Full Code - Physician Narrative Physician: Lata Gautam MD Narrative: Date: 01/01/18 Time: 2054 I have independently evaluated and examined this patient. I reviewed the chart, the patient's history, and the CYBER WORKFORCE DEVELOPER AND MANAGER/PA's documented findings as above. We discussed and formulated the assessment and plan as above with additions as below: Mrs. Galazra with emotional when seen after thinking about her 's which she associates with home oxygen use. Overall she acknowledges that her breathing is significantly improved and she is wheezing much less than she was on admission. She is emotionally unable to consider using oxygen even short- term at home; she is also unwilling to consider short-term halfway placement. NAD, tearful/stoic; O2 saturation 96% on 4 L by bedside monitor time of my exam Respirations nonlabored with good airflow, breath sounds clear until deep inspirations taken triggering cough and occasional wheezing Regular rhythm Convert to oral steroids; titrate oxygen-clearly making good progress. This evening patient has titrated to 1 L with well maintained saturations. Ambulatory oximetry in the morning. Discussed with Dr. Brar. Hospital Course Summary Disclaimer: The visit summary below is not to be considered part of the above Progress Note. Hospital Course: 12/30 Admit, inpatient status, for hypoxia with room air sats of 83% and new need for O2. Start Doxy, Solu-Medrol, routine DuoNebs, acapella. Lightheadedness could be secondary to hypoxia - monitor; may need to provide IVF. 12/31 Improving, currently on vapotherm. Steroids decreased per pulm. Continue nebs. Continue to cover for COPD exac and tick exposure with Doxy, started 12/30/17. MiraLax added for constipation. Increase activity as tolerated. 01/01 Respiratory status improving. Vapotherm has been dc'd, currently on 6L of O2 which is being weaned down. Continue Steroids, nebs. Given the extreme anxiety/emotional distress that home O2 would create for her, it may be in her best interest to wean her off oxygen prior to discharge. Continue to cover for COPD exac and tick exposure with Doxy, started 12/30/17. MiraLax for constipation. Senna Plus/MOM also available.
--- NOTE | 2018-01-01 12:14 | Pulmonology Progress Note ---
Subjective Interval history: tearful when considering home O2 feeling much better overall Exam Vital signs: Temperature 98.1 F 01/01/18 07:00 Pulse Rate 83 01/01/18 07:00 Respiratory Rate 20 01/01/18 08:26 Blood Pressure 123/65 01/01/18 07:00 Pulse Oximetry 96 01/01/18 10:22 Inpatient Medications: Generic Name Dose Route Start Last Admin Trade Name Freq PRN Reason Stop Dose Admin Acetaminophen 325 - 650 mg 12/30/17 12:33 Tylenol PO Q5H PRN Discomfort Albuterol Sulfate 2.5 mg 12/30/17 15:27 12/30/17 15:15 Proventil Neb (0.083%) AEROSOL 2.5 mg Q1H PRN Administration Albuterol/Ipratropium 3 ml 12/30/17 15:30 01/01/18 12:00 Duoneb AEROSOL 3 ml Q4H MARTHA Administration Budesonide 0.5 mg 12/30/17 19:00 01/01/18 08:25 Pulmicort Inhalation AEROSOL 0.5 mg RTBID MARTHA Administration Doxycycline Hyclate 100 mg 12/31/17 19:49 01/01/18 08:59 Vibramycin PO 100 mg BIDWM MARTHA Administration Guaifenesin/Dextromethorphan 1 tab 12/30/17 14:01 Mucinex Dm PO BID PRN Cough /Congestion Ibuprofen 600 mg 12/30/17 12:33 12/30/17 13:24 Motrin PO 600 mg Q6H PRN Administration Pain Insulin Aspart 1 - 5 unit 12/30/17 16:33 12/30/17 22:15 Novolog SQ 2 unit SS PRN Administration Hyperglycemia Protocol Magnesium Hydroxide 30 ml 12/30/17 12:33 Mom PO DAILY PRN Constipation Methylprednisolone Sodium Succinate 62.5 mg 12/31/17 10:00 01/01/18 08:59 Solu-Medrol IVP 62.5 mg Q6HR MARTHA Administration Ondansetron HCl 4 mg 12/30/17 12:33 Zofran IVP Q6H PRN Nausea &/or vomiting Polyethylene Glycol 17 gm 12/31/17 12:15 01/01/18 08:59 Miralax PO 17 gm DAILY MARTHA Administration Rosuvastatin Calcium 20 mg 12/30/17 21:00 12/31/17 20:24 Crestor PO 20 mg HS MARTHA Administration Senna/Docusate Sodium 1 tab 12/30/17 12:33 Senna Plus Tablet PO BID PRN Constipation Sodium Chloride 10 - 80 ml 12/31/17 15:30 Iv Flush IVF PRN PRN Flushing Zolpidem Tartrate 5 mg 12/31/17 23:06 12/31/17 23:18 Ambien PO 5 mg HS PRN Administration Insomnia Discontinued Medications Generic Name Dose Route Start Last Admin Trade Name Sebastien PRN Reason Stop Dose Admin Albuterol/Ipratropium 3 ml 12/30/17 15:00 12/30/17 13:48 Duoneb AEROSOL 3 ml RTQID MARTHA Administration Methylprednisolone Sodium Succinate 125 mg 12/30/17 12:45 12/31/17 09:13 Solu-Medrol IVP Not Given Q6HR MARTHA - Constitutional no acute distress - Routine Neck Exam Present: supple - Routine Respiratory Exam Present: decreased breath sounds, prolonged expiratory phase - Routine Cardiovascular Exam Present: RRR - Routine Abdominal Exam Present: soft Results - Laboratory Findings Laboratory: Laboratory Results - last 48 hr 12/30/17 12/30/17 12/31/17 13:11 13:11 04:13 WBC 6.3 RBC 4.58 Hgb 14.7 Hct 44.0 MCV 96.1 MCH 32.1 MCHC 33.4 RDW Std Deviation 40.8 Plt Count 186 MPV 9.8 Immature Gran % (Auto) 0.2 Neut % (Auto) 52.8 Lymph % (Auto) 22.1 L [place] % (Auto) 10.2 H Eos % (Auto) 13.9 H Baso % (Auto) 0.8 Neut # (Auto) 3.3 Lymph # (Auto) 1.4 [place] # (Auto) 0.6 Eos # (Auto) 0.9 H Baso # (Auto) 0.1 Abs Immat Gran (auto) 0.01 D-Dimer Turbidity < 20 < 20 Sodium 145 142 Potassium 4.6 3.9 Chloride 102 105 Carbon Dioxide 29 23 Anion Gap 14 14 BUN 13.0 12.0 Creatinine 0.7 0.6 L GFR Calculation 82 99 BUN/Creatinine Ratio 19 20 Glucose 89 179 H Glucometer Calculated Osmolality 278 277 Calcium 10.0 9.7 Icterus Index < 2 < 2 Specimen Hemolysis < 15 < 15 12/31/17 12/31/1718 08:56 10:25 15:17 WBC RBC Hgb Hct MCV MCH MCHC RDW Std Deviation Plt Count MPV Immature Gran % (Auto) Neut % (Auto) Lymph % (Auto) [place] % (Auto) Eos % (Auto) Baso % (Auto) Neut # (Auto) Lymph # (Auto) [place] # (Auto) Eos # (Auto) Baso # (Auto) Abs Immat Gran (auto) D-Dimer 194 Turbidity Sodium Potassium Chloride Carbon Dioxide Anion Gap BUN Creatinine GFR Calculation BUN/Creatinine Ratio Glucose Glucometer 181 191 Calculated Osmolality Calcium Icterus Index Specimen Hemolysis 12/31/17 01/01/18 01/01/18 20:26 05:42 10:26 WBC RBC Hgb Hct MCV MCH MCHC RDW Std Deviation Plt Count MPV Immature Gran % (Auto) Neut % (Auto) Lymph % (Auto) [place] % (Auto) Eos % (Auto) Baso % (Auto) Neut # (Auto) Lymph # (Auto) [place] # (Auto) Eos # (Auto) Baso # (Auto) Abs Immat Gran (auto) D-Dimer Turbidity Sodium Potassium Chloride Carbon Dioxide Anion Gap BUN Creatinine GFR Calculation BUN/Creatinine Ratio Glucose Glucometer 189 153 132 Calculated Osmolality Calcium Icterus Index Specimen Hemolysis Assessment and Plan (1) Acute hypoxemic respiratory failure Status: Acute Assessment and plan: presented with acute hypoxemic respiratory failure. Wean O2 as tolerated. She is not on continuous O2 at home and hopes to avoid that D Dimer was normal Current Visit: Yes (2) COPD exacerbation Status: Acute Assessment and plan: Agree with nebulized budesonide BID, Solumedrol. We can wean to prednisone. Agree with empiric doxycycline Neb albuterol/iprat q4h. wean O2 as tolerated. Current Visit: No - Time Spent With Patient Total time spent is greater than 50% in coordination of care (as documented) at patient's floor/unit and/or counseling patient: less than 15 minutes
[2018-01-01 13:27] VITALS: BMI 20.5
[2018-01-01] MEDS: IBUPROFEN 600 MG TABLET PO PRN (14:29)
[2018-01-01] MEDS ORDERED: PredniSONE 20 MG TABLET PO ONE (17:00)
[2018-01-01] MEDS: ROSUVASTATIN 20 MG TABLET PO SCH (21:37)
[2018-01-02] MEDS: ALBUTEROL/IPRATROPIUM 2.5mg-0.5mg/3ml NEB AEROSOL SCH ×4 (00:45→11:28)
[2018-01-02] MEDS ORDERED: PredniSONE 20 MG TABLET PO SCH (08:00)
[2018-01-02] MEDS: BUDESONIDE INH.SOLN 0.5mg/2ml NEB AEROSOL SCH (08:25)
[2018-01-02 08:31] VITALS: RESP 20
[2018-01-02 08:36] VITALS: BP 142/67; PULSE 94; TEMP 98.1
--- NOTE | 2018-01-02 10:08 | Pulmonology Progress Note ---
Subjective Principal diagnosis: COPD exacerbation Interval history: Pt up to EOB, states she is feeling better, less cough and sputum noted. Wanting to go home. Exam Vital signs: Temperature 98.1 F 01/02/18 08:31 Pulse Rate 94 01/02/18 09:41 Respiratory Rate 20 01/02/18 08:31 Blood Pressure 142/67 H 01/02/18 07:00 Pulse Oximetry 94 01/02/18 09:41 Inpatient Medications: Generic Name Dose Route Start Last Admin Trade Name Freq PRN Reason Stop Dose Admin Acetaminophen 325 - 650 mg 12/30/17 12:33 Tylenol PO Q5H PRN Discomfort Albuterol Sulfate 2.5 mg 12/30/17 15:27 12/30/17 15:15 Proventil Neb (0.083%) AEROSOL 2.5 mg Q1H PRN Administration Albuterol/Ipratropium 3 ml 12/30/17 15:30 01/02/18 08:25 Duoneb AEROSOL 3 ml Q4H MARTHA Administration Budesonide 0.5 mg 12/30/17 19:00 01/02/18 08:25 Pulmicort Inhalation AEROSOL 0.5 mg RTBID MARTHA Administration Doxycycline Hyclate 100 mg 12/31/17 19:49 01/02/18 08:43 Vibramycin PO 100 mg BIDWM MARTHA Administration Guaifenesin/Dextromethorphan 1 tab 12/30/17 14:01 Mucinex Dm PO BID PRN Cough /Congestion Ibuprofen 600 mg 12/30/17 12:33 01/01/18 14:29 Motrin PO 600 mg Q6H PRN Administration Pain Insulin Aspart 1 - 5 unit 12/30/17 16:33 12/30/17 22:15 Novolog SQ 2 unit SS PRN Administration Hyperglycemia Protocol Magnesium Hydroxide 30 ml 12/30/17 12:33 Mom PO DAILY PRN Constipation Ondansetron HCl 4 mg 12/30/17 12:33 Zofran IVP Q6H PRN Nausea &/or vomiting Polyethylene Glycol 17 gm 12/31/17 12:15 01/01/18 08:59 Miralax PO 17 gm DAILY MARTHA Administration Prednisone 40 mg 01/02/18 08:00 01/02/18 08:44 Deltasone 20 Mg PO 40 mg WB MARTHA Administration Rosuvastatin Calcium 20 mg 12/30/17 21:00 01/01/18 21:37 Crestor PO 20 mg HS MARTHA Administration Senna/Docusate Sodium 1 tab 12/30/17 12:33 Senna Plus Tablet PO BID PRN Constipation Sodium Chloride 10 - 80 ml 12/31/17 15:30 Iv Flush IVF PRN PRN Flushing Zolpidem Tartrate 5 mg 12/31/17 23:06 12/31/17 23:18 Ambien PO 5 mg HS PRN Administration Insomnia Discontinued Medications Generic Name Dose Route Start Last Admin Trade Name Freq PRN Reason Stop Dose Admin Albuterol/Ipratropium 3 ml 12/30/17 15:00 12/30/17 13:48 Duoneb AEROSOL 3 ml RTQID MARTHA Administration Methylprednisolone Sodium Succinate 125 mg 12/30/17 12:45 12/31/17 09:13 Solu-Medrol IVP Not Given Q6HR MARTHA Methylprednisolone Sodium Succinate 62.5 mg 12/31/17 10:00 01/01/18 08:59 Solu-Medrol IVP 62.5 mg Q6HR MARTHA Administration Prednisone 40 mg 01/01/18 17:00 01/01/18 18:16 Deltasone 20 Mg PO 01/01/18 17:01 40 mg O ONE Administration - Constitutional no acute distress, average body habitus, cooperative - Routine HEENT Exam Head: Present: normocephalic, atraumatic Eye: Present: EOMI, PERRL - Routine Neck Exam Present: supple, full ROM, trachea midline - Routine Respiratory Exam Present: decreased breath sounds. Absent: accessory muscle use, patient mechanically ventilated - Routine Cardiovascular Exam Present: RRR, S1, S2, no murmur - Routine Abdominal Exam Present: soft, normoactive bowel sounds - Routine Extremities Exam Present: no edema, non tender, full ROM - Routine Back/Spine/Pelvis Exam Back/Spine: Present: full ROM - Routine Skin Exam Present: intact, dry - Routine Neurological Exam Present: alert, oriented X3, CN II-XII intact - Routine Psychiatric Exam Present: normal affect, normal thought process Results - Laboratory Findings Laboratory: Laboratory Results - last 48 hr 12/31/17 12/31/17 12/31/17 10:25 15:17 20:26 Turbidity Sodium Potassium Chloride Carbon Dioxide Anion Gap BUN Creatinine GFR Calculation BUN/Creatinine Ratio Glucose Glucometer 181 191 189 Calculated Osmolality Calcium Icterus Index Specimen Hemolysis 01/01/18 01/01/18 01/01/18 05:42 10:26 15:56 Turbidity Sodium Potassium Chloride Carbon Dioxide Anion Gap BUN Creatinine GFR Calculation BUN/Creatinine Ratio Glucose Glucometer 153 132 162 Calculated Osmolality Calcium Icterus Index Specimen Hemolysis 01/01/18 01/02/18 01/02/18 20:22 04:04 06:12 Turbidity < 20 Sodium 140 Potassium 3.9 Chloride 104 Carbon Dioxide 26 Anion Gap 10 BUN 16.0 Creatinine 0.6 L GFR Calculation 99 BUN/Creatinine Ratio 27 H Glucose 144 H Glucometer 134 114 Calculated Osmolality 273 Calcium 9.2 Icterus Index < 2 Specimen Hemolysis < 15 Assessment and Plan (1) COPD exacerbation Status: Acute Current Visit: No (2) Acute hypoxemic respiratory failure Status: Acute Current Visit: Yes - Assessment and Plan Plan: Pt currently on RA and tolerating. ExOx with sats >90% at rest and ambulation. Continue on BT's with prednisone and Doxy. Would wean prednisone OP. Pt to resume her trelegy OP along with nebulizer as needed. Will have her f/u in 3-4 weeks OP. - Time Spent With Patient Total time spent is greater than 50% in coordination of care (as documented) at patient's floor/unit and/or counseling patient: less than 15 minutes
[2018-01-02 10:45] VITALS: O2SAT 96
[2018-01-02] MEDS: POLYETHYL GLYCOL 3350 17gm PACKET PO SCH (11:19)
--- NOTE | 2018-01-02 11:55 | Progress Note ---
- Date 01/02/18 Subjective: F/U: Acute hypoxic resp failure, COPD with exacerbation Doing much better today. Less cough/congestion. No pain with breathing. Breathing well on RA. Using IS and acapella with good success. Eating well. No ab pain or nausea. No pain with swallow. Bowels moving. Ambulating well. Feels ready to go home. Objective Vital signs: Temperature 98.1 F 01/02/18 08:31 Pulse Rate 94 01/02/18 09:41 Respiratory Rate 20 01/02/18 11:28 Blood Pressure 142/67 H 01/02/18 07:00 Pulse Oximetry 96 01/02/18 11:28 Height/Weight/BMI: Height 1.68 m Weight 56.7 kg Body Mass Index 20.5 - Constitutional Present: no acute distress, well nourished, well developed, average body habitus , cooperative - Routine HEENT Exam Head: Present: normocephalic, atraumatic Eye: Present: EOMI, PERRL, normal accommodation ENT: Present: mucous membranes moist - Routine Respiratory Exam Present: decreased breath sounds. Absent: respiratory distress, rhonchi, wheezes, crackles - Routine Cardiovascular Exam Present: RRR, no murmur - Routine Abdominal Exam Present: soft, normoactive bowel sounds, non distended, non tender. Absent: guarding - Routine Extremities Exam Present: no edema, pulses intact. Absent: cyanosis, clubbing - Routine Musculoskeletal Exam Musculoskeletal: Present: no clubbing or cyanosis, normal strength - Routine Skin Exam Present: dry, warm - Routine Neurological Exam Present: alert, oriented X3, CN II-XII intact, moving all extremities, vision grossly intact, hearing grossly intact, normal speech. Absent: motor deficit, altered mental status - Routine Psychiatric Exam Present: normal affect, normal thought process, cooperative, good insight Results - Labs CBC & Chem 7: 12/30/17 13:11 01/02/18 04:04 Assessment and Plan (1) COPD exacerbation Current visit: No Status: Acute Assessment and Plan: Assessment Acute hypoxic respiratory failure COPD with exacerbation GOLD stage A, FV1 59% predicted Lightheadedness, mild left ear effusion Tick exposure and Insect bite - occiput/left groin GERD OA Plan Clinically much improved. Maintaining saturations well on RA. Ambulating well. Will discharge to home. Continue doxycycline 100mg BID for 5 days. Prednisone 40mg daily for 5 days, then decrease to 20mg daily for 5 days then may stop. Acapella QID for 1 week then prn. IS QID for 1 week then prn. F/U with Dr Celaya in 1 week. F/U with Dr Brar in 2-3 weeks. See orders for details Case discussed with CM and pulm. Time spent with patient care and discharge greater than 30 minutes. DVT Prophylaxis: SCD's Resuscitation Status: Full Code - Physician Narrative Physician: Sj Mena MD Narrative: Date: 01/02/18 Time: 1151 Hospital Course Summary Disclaimer: The visit summary below is not to be considered part of the above Progress Note. Hospital Course: 12/30/17 Admit, inpatient status, for hypoxia with room air sats of 83% and new need for O2. Start Doxy, Solu-Medrol, routine DuoNebs, acapella. Lightheadedness could be secondary to hypoxia - monitor; may need to provide IVF. 12/31/17 Improving, currently on vapotherm. Steroids decreased per pulm. Continue nebs. Continue to cover for COPD exac and tick exposure with Doxy, started 12/30/17. MiraLax added for constipation. Increase activity as tolerated. 01/01/18 Respiratory status improving. Vapotherm has been dc'd, currently on 6L of O2 which is being weaned down. Continue Steroids, nebs. Given the extreme anxiety/emotional distress that home O2 would create for her, it may be in her best interest to wean her off oxygen prior to discharge. Continue to cover for COPD exac and tick exposure with Doxy, started 12/30/17. MiraLax for constipation. Senna Plus/MOM also available. 01/02/18 Clinically much improved. Maintaining saturations well on RA. Ambulating well. Will discharge to home. Continue doxycycline 100mg BID for 5 days. Prednisone 40mg daily for 5 days, then decrease to 20mg daily for 5 days then may stop. Acapella QID for 1 week then prn. IS QID for 1 week then prn. F/U with Dr Celaya in 1 week. F/U with Dr Brar in 2-3 weeks. See orders for details.
--- NOTE | 2018-01-02 20:20 | Discharge Summary ---
Discharge Information Date of admission: 12/30/17 10:53 Anticipated date of discharge: 01/02/18 Attending Physician: Sj Mena MD Primary care physician: Naman Lobato MD Consults: Physician Consult: Claudy Brar Reason For Exam: COPD exacerbation - Discharge Diagnosis (1) COPD exacerbation Status: Acute Discharge diagnosis Acute hypoxic respiratory failure Associated conditions and complications COPD with exacerbation GOLD stage A, FV1 59% predicted Lightheadedness, mild left ear effusion Tick exposure and Insect bite - occiput/left groin GERD OA Steroid induced hyperglycemia - Laboratory Labs: Admit Lab 12/30/17 13:11 Sodium 145 Potassium 4.6 Chloride 102 Carbon Dioxide 29 Anion Gap 14 BUN 13.0 Creatinine 0.7 GFR Calculation 82 BUN/Creatinine Ratio 19 Glucose 89 Calculated Osmolality 278 Calcium 10.0 12/30/17 13:11 01/02/18 04:04 - Radiology Radiology: Date of Exam: 12/30/17 Type of Exam: XR chest 2V FINDINGS: The lungs are mildly hyperinflated, but clear without evidence of focal abnormal airspace opacity. There is no pleural effusion or pneumothorax. Chronic calcified nodule in the right lateral midlung. The heart size, mediastinal contours and pulmonary vascularity are within normal limits. There is no significant skeletal abnormality. IMPRESSION: No acute cardiopulmonary disease. History of Present Illness HPI: Edwige Galarza is a 72-year-old woman with COPD Gold stage A. She had been in good health recently, and returned from [facility] on December 23. She worked outside, tending to her plants the following couple of days. By December 26, she began to feel short of breath, and by December 27, she was unable to perform even light activities without becoming short of breath. She states that she "became a hermit" and stayed in the house because she suspected that wheat harvest triggered her shortness of breath and wheezing. Every time she tried using Combivent she began coughing, so she hasn't been able to control any of her symptoms at home. She also reports feeling lightheaded and vertiginous, however , only when she has been at rest. She has not noticed these symptoms when she is upright. She denies any syncope. She complains of a frontal headache. She has a cough that is nonproductive. She denies any sinus drainage or congestion. No fever but has had some chills. She noticed left ear fullness while she was in [facility] and instilled a couple drops of rubbing alcohol. Her activity level continued to decline because of her shortness of breath. She tried to go to [employer] on Friday, but had to leave early. She states that at night she props herself up on 5 pillows in order to sleep. She denies any chest pain. She denies visual changes, though states that she recently had new glasses prescribed. She denies any abdominal pain, nausea, vomiting, diarrhea or constipation and states her appetite has been preserved. She denies any urinary changes. She states that last week she removed a small tick from her scalp but she is unsure of duration of time. She also woke up with a small bite to her left groin, which is already improving. She denies any injuries or wounds otherwise. She denies easy bruising or bleeding. She saw Dr. Brar on . Her room air sat was 83% and after being placed on 2 L it only improved to 85%. She was therefore started on 4 L of oxygen. She does not use oxygen at home. She was markedly dyspneic and tachypneic. At that time, Dr. Brar contacted Dr. Gautam and the patient was admitted to inpatient status for COPD exacerbation. Length of stay is expected to exceed 2 overnights. For complete details of the H&P refer to that document. Objective Vital signs: Temperature 98.1 F 01/02/18 08:31 Pulse Rate 94 01/02/18 09:41 Respiratory Rate 20 01/02/18 11:28 Blood Pressure 142/67 H 01/02/18 07:00 Pulse Oximetry 96 01/02/18 11:28 Height/Weight/BMI: Height 1.68 m Weight 56.7 kg Body Mass Index 20.5 Hospital Course This is a general summary of the patient's hospital course. For more details refer to the complete medical record. Hospital course: 12/30/17 Admit, inpatient status, for hypoxia with room air sats of 83% and new need for O2. Start Doxy, Solu-Medrol, routine DuoNeb, acapella. Lightheadedness could be secondary to hypoxia - monitor; may need to provide IVF. 12/31/17 Improving, currently on Vapotherm. Steroids decreased per pulm. Continue nebs. Continue to cover for COPD exac and tick exposure with Doxy, started 12/30/17. MiraLax added for constipation. Increase activity as tolerated. 01/01/18 Respiratory status improving. Vapotherm has been dc'd, currently on 6L of O2 which is being weaned down. Continue Steroids, nebs. Given the extreme anxiety/emotional distress that home O2 would create for her, it may be in her best interest to wean her off oxygen prior to discharge. Continue to cover for COPD exac and tick exposure with Doxy, started 12/30/17. MiraLax for constipation. Senna Plus/MOM also available. 01/02/18 Clinically much improved. Maintaining saturations well on RA. Ambulating well. Will discharge to home. Continue doxycycline 100mg BID for 5 days. Prednisone 40mg daily for 5 days, then decrease to 20mg daily for 5 days then may stop. Acapella QID for 1 week then prn. IS QID for 1 week then prn. F/U with Dr Celaya in 1 week. F/U with Dr Brar in 2-3 weeks. See orders for details. Time spent with patient: discharge greater than 30 minutes Resuscitation Status: Full Code Discharge Plan - Discharge Disposition Discharge Date: 01/02/18 Disposition: 01 Discharged Home, Self-Care *Condition: Stable Reason For Visit (Visit label in EMR): COPD EXAC - Discharge Medications *Discharge Medications: New Doxycycline [Vibramycin] 100 mg PO BIDWM #10 tab Guaifenesin/Dm [Mucinex Dm] 1 tab PO BID PRN tab PRN Reason: Cough /Congestion PEG 3350 17gm PACKET [Miralax] 17 gm PO DAILY PRN #1 bottle PRN Reason: Constipation PredniSONE [Deltasone 20 mg] 40 mg PO WB #15 tab Continue Ipatropium/Albuterol [Combivent Respimat Inhaler] 1 puff IH Q4HPRN PRN PRN Reason: Dyspnea Rosuvastatin [Crestor] 1 tab PO HS Umeclidinium Brm/Vilanterol Tr [Anoro Ellipta 62.5-25 Mcg INH] 1 puff IH DAILY Cholecalciferol (Vitamin D3) [Vitamin D3] 1,000 unit PO DAILY Calcium 1,200 mg PO DAILY Magnesium Oxide 500 mg PO DAILY DiphenhydrAMINE [Benadryl] 1 cap PO Q6H PRN PRN Reason: allergy Ibuprofen 400 tab PO Q4H PRN PRN Reason: Pain - Discharge Packet/Instructions *Diet: Regular *Activity: As tolerated *Pain Management/Treatment: Continue prior home pain medications *Wound Care: N/A Additional Instructions: Use Prednisone 2 tablets (40mg) daily with breakfast for 5 days, then use Predinosne 1 tablet (20mg) daily with breakfast for 5 days , then may stop. Use Acapella 4 times a day for 1 week, then as needed for congestion. Use IS 4 times a day for 1 week, then as needed for congestion/ shortness of air. May use Mucinex DM twice a day as needed for cough/ congestion. *Expected Signs/Symptoms: Improvement of brething, decreasing cough and congestion. *Notify Physician if: Temp >100.4. Increasing shortness or breath. Uncontrollable diarrhea. *During Business Hours Contact: Dr Lobato *After Business Hours Contact: Call [facility] and have Dr Lobato or his covering provider contacted. *Pending Lab/Results: No Pending Lab - Referrals/Follow Up *Referrals/Follow Up: Claudy Brar MD [Physician] - 3 Weeks Naman Lobato MD [Primary Care Provider] - ([facility] - has appointment of 01/06 already made.) - Patient Handouts Patient Handouts: COPD (Chronic Obstructive Pulmonary Disease) (GEN) - Dismissal Complete Discharge Instructions are:: Complete Physician Narrative - Narrative Physician: Sj Mena MD Attestation Narrative: Date: 01/02/18 Time: 2016 I have independently interviewed and examined patient prior to discharge. See my progress noted for details. Medically stable for discharge to home.
== END 2018-01-02 15:45 | disposition home or self-care (01) | DRG 190 ==
LOC: MED 10:53 → SUATTDRO 10:53
PROVIDERS: ADMIT Internal Medicine; ATTEND Hospitalist

== ENCOUNTER 2018-01-21 22:25 | Inpatient (IN) ==
[2018-01-21] MEDS ORDERED: ALBUTEROL/IPRATROPIUM 2.5mg-0.5mg/3ml NEB AEROSOL ONE (23:20)
[2018-01-22] MEDS ORDERED: ALBUTEROL 2.5mg/3ml (0.083%) NEB AEROSOL ONE (00:07)
[2018-01-22] MEDS ORDERED: METHYLPREDNISOLONE SOD SUCC 125mg/2ml INJECTION IM ONE (00:07)
--- NOTE | 2018-01-22 00:11 | Emergency Department Report ---
SOB HPI - General Chief Complaint: Shortness of Breath/Dyspnea Stated Complaint: trouble breathing Time Seen by Provider: 01/22/18 00:06 - History of Present Illness 72-year-old female presents with shortness of breath. She has long-standing history of reactive airway disease and COPD. Stop smoking 7 years ago, but continues to have respiratory issues. The last 3 or 4 days have been quite severe as she just came off prednisone. She was admitted to the hospital mid November with respiratory failure. Since that time she has been on IV and then oral steroids. Her last treatment today was at 6 PM, she uses DuoNeb equivalent. No fever, no chills. She does not normally require oxygen, but is at this moment. - Related Data Home Medications Medication Instructions Recorded Confirmed Ipatropium/Albuterol [Combivent 1 puff IH Q4HPRN PRN 09/18/17 02/03/18 Respimat Inhaler] Magnesium Oxide 500 mg PO DAILY 09/18/17 02/03/18 Rosuvastatin [Crestor] 1 tab PO HS 09/18/17 02/03/18 Calcium 1,200 mg PO DAILY 12/30/17 02/03/18 DiphenhydrAMINE [Benadryl] 1 cap PO Q6H PRN 12/30/17 02/03/18 Ibuprofen 400 tab PO Q4H PRN 12/30/17 02/03/18 Claritin (Loratadine) 10 mg tablet 10 mg PO DAILY 02/03/18 02/03/18 Flonase (Fluticasone) 50 mcg nasal 1 spray INTRANASAL DAILY 02/03/18 02/03/18 spray fluticasone 100 mcg-umeclid 62.5 1 puff INH DAILY 02/03/18 02/03/18 mcg-vilant 25 mcg powd for inhalation ipratropium-albuterol 0.5 mg-3 INH 30 Days #360 02/03/18 02/03/18 mg(2.5 mg base)/3 mL nebulization soln Previous Rx's Medication Instructions Recorded PEG 3350 17gm PACKET [Miralax] 17 gm PO DAILY PRN #1 bottle 01/02/18 PredniSONE [Deltasone 5 mg] 5 mg PO DAILY #30 tab 01/23/18 Allergies Allergy/AdvReac Type Severity Reaction Status Date / Time Penicillins Allergy Severe Anaphylactic Verified 01/21/18 23:03 Shock adhesive tape Allergy Mild Rash Verified 01/21/18 23:03 latex Allergy Mild Redness of Verified 01/21/18 23:03 Skin Review of Systems All systems: reviewed and negative except as stated PFSH Patient Stated Medical History Migraine Yes: off and on Bronchitis Yes: history of Chronic Obstructive Pulmonary Yes Disease (COPD) Gastroesophageal Reflux Yes Disease Osteoarthritis Yes Depression Yes: Related to spouse passing away Clinic Medical History (Last Updated 01/06/18 @ 14:06 by MEL Daly) Osteopenia (Chronic Medical) Psoriasis (Chronic Medical) Osteoarthritis (Chronic Medical) High cholesterol (Chronic Medical) COPD (chronic obstructive pulmonary disease) (Chronic Medical) Medical History Updates: COPD. GERD. OA Surgical History: knee surgery right. breast lumpectomy right. ganglion removed from right wrist. D&C in the . cryotherapy 1989 Family History: Family History (Last Updated 01/06/18 @ 14:10 by MEL Daly) Mother Arthritis Heart attack High blood pressure Emphysema/COPD Brother Arthritis Paternal Grandmother Cancer Paternal Grandfather Cancer Father Dementia High cholesterol Stroke H/O mitral valve replacement Family History Updates: Father - stroke, dementia. Mother - COPD, HTN, age 83 of [place]. Brother - HTN. Daughter - myasthenia gravis - Social History Smoking status: Former smoker Packs-years: 50 second hand exposure: No Substance use type: does not use Alcohol intake frequency: a few times a week Current occupational status: retired Physical Exam - Limitations Limitations: no limitations - General General appearance: alert - Normal Exams: Head:: Normocephalic without trauma Cardiovascular:: Regular rate and rhythm, without murmur or gallop, Pulses 2+ all extremities, capillary refill, <2 seconds all extremities Abdomen:: Bowel sounds positive, soft, non-tender, non-distended, no hepatosplenomegaly, masses or bruits noted Neurological:: Patient is alert, and oriented, cranial nerves, motor/sensory/ cerebellar, exams w/o gross deficits, to observation Psychiatric:: Patient exhibits, appropriate attention, emotion and affect - Respiratory Respiratory exam: Present: wheezes (severe bilateral) Course Vital Signs Pulse Rate 105 H 01/21/18 22:51 Respiratory Rate 24 01/21/18 22:51 Blood Pressure 171/79 H 07/11/18 22:51 Pulse Oximetry 85 L 01/21/18 22:51 Pulse Rate 105 H 01/21/18 22:51 Respiratory Rate 20 01/21/18 23:27 Blood Pressure 171/79 H 01/21/18 22:51 Pulse Oximetry 95 01/21/18 23:27 Shortness of Breath/Dyspnea - [facility] Narrative Medical decision making narrative: Patient given DuoNeb treatment immediately on arrival to ED. Had some improvement in breathing with this and was placed on oxygen. She was given a second treatment of straight albuterol and Solu-Medrol 125 mg IM. Over the next hour she had significant improvement symptomatically, but was not able to stay above 88% O2 sat on room air. She consistently was at 84-86% at rest. She would drop even lower if she moved around in bed. Abs returned normal, chest x-ray shows no infiltrate or infectious process. Hospitalist consulted and patient will be admitted. - Differential Diagnosis Likely: acute exacerbation of chronic obstructive airways disease, community acquired pneumonia, asthma with exacerbation, pulmonary embolism - Medical Records Attestation: I reviewed the patient's medical records. - Lab Data Attestation: I reviewed the patient's lab results. Result diagrams: 01/22/18 00:53 01/22/18 00:53 - Radiology Data Attestation: I reviewed the patient's radiology results. Disposition Clinical Impression: Hypoxia Disposition: To [facility] [place] Acute Care Condition: Stable Time of Disposition: 16:31 - Seen By: physician
[2018-01-22] MEDS ORDERED: ALBUTEROL 2.5mg/3ml (0.083%) NEB AEROSOL PRN (03:10)
[2018-01-22] MEDS ORDERED: MORPHINE SULFATE 2mg INJECTION IVP PRN (03:10)
[2018-01-22] MEDS ORDERED: ACETAMINOPHEN 325 MG TABLET PO PRN (03:10)
[2018-01-22 03:27] VITALS: BMI 20.1
--- NOTE | 2018-01-22 04:01 | History & Physical Report ---
History of Present Illness Date: 01/22/18 Chief complaint: SOB HPI: The pt is a 72 yo with known COPD who quit smoking 7 years ago and started having SOB, cough and dsypnea over the past several months. She was admitted to our facility from 12/30-01/02, discharged on Prednsione taper. She completed the steroids on 01/12, but started having more difficulty on 01/18. At home she reports her Sa)2- 82%, but high 80's in ER. no sputum production, no fevers or chills. THe pt believes her symptoms and flare is due to wheat harvest and work around her yard. Review of Systems - Constitutional Constitutional: Absent: chills, fatigue, fever(s), headache(s) - EENMT Eyes: Absent: change in vision, dry eye - Cardiovascular Cardiovascular: Absent: chest pain, orthopnea - Respiratory Respiratory: Present: cough, dyspnea on exertion, wheezing, chest congestion. Absent: hemoptysis, pain on inspiration - Gastrointestinal Gastrointestinal: Absent: diarrhea, nausea, vomiting Past Medical History Medical History: Medical History (Last Updated 01/06/18 @ 14:06 by MEL Daly) Osteopenia (Chronic) Psoriasis (Chronic) Osteoarthritis (Chronic) High cholesterol (Chronic) COPD (chronic obstructive pulmonary disease) (Chronic) Medical History Updates: COPD. GERD. OA Surgical History: knee surgery right. breast lumpectomy right. ganglion removed from right wrist. D&C in the . cryotherapy 1989 Family History: Family History (Last Updated 01/06/18 @ 14:10 by MEL Daly) Mother Arthritis Heart attack High blood pressure Emphysema/COPD Brother Arthritis Paternal Grandmother Cancer Paternal Grandfather Cancer Father Dementia High cholesterol Stroke H/O mitral valve replacement Family History: No Significant Family History - Social History Smoking status: Former smoker Substance use type: does not use Household members: none Current occupational status: retired Medications Home Medications Medication Instructions Recorded Confirmed Type Ipatropium/Albuterol [Combivent 1 puff IH Q4HPRN PRN 09/18/17 01/21/18 History Respimat Inhaler] Magnesium Oxide 500 mg PO DAILY 09/18/17 01/21/18 History Rosuvastatin [Crestor] 1 tab PO HS 09/18/17 01/21/18 History Calcium 1,200 mg PO DAILY 12/30/17 01/21/18 History DiphenhydrAMINE [Benadryl] 1 cap PO Q6H PRN 12/30/17 01/21/18 History Ibuprofen 400 tab PO Q4H PRN 12/30/17 01/21/18 History PEG 3350 17gm PACKET [Miralax] 17 gm PO DAILY PRN #1 bottle 01/02/18 01/21/18 Rx Breo Ellipta (fluticasone 100 1 puff INH DAILY 01/06/18 01/21/18 History mcg-vilanterol 25 mcg/dose) powder for inhalation Allergies Allergy/AdvReac Type Severity Reaction Status Date / Time Penicillins Allergy Severe Anaphylactic Verified 01/21/18 23:03 Shock adhesive tape Allergy Mild Rash Verified 01/21/18 23:03 latex Allergy Mild Redness of Verified 01/21/18 23:03 Skin Exam Vital Signs: Pulse Rate 83 01/22/18 02:37 Respiratory Rate 20 01/22/18 02:00 Blood Pressure 122/59 01/22/18 02:37 Pulse Oximetry 93 01/22/18 02:37 Height/Weight/BMI: Height 1.65 m Weight 55 kg Body Mass Index 20.1 - Constitutional Present: no acute distress, cooperative - Routine Neck Exam Present: supple - Routine Respiratory Exam Present: dyspnea, wheezes. Absent: accessory muscle use - Routine Cardiovascular Exam Present: RRR, no murmur - Routine Abdominal Exam Present: soft, normoactive bowel sounds, non distended, non tender Results - Labs CBC & Chem 7: 01/22/18 00:53 01/22/18 00:53 Assessment and Plan (1) Hypoxia Current visit: Yes Status: Acute (2) Acute exacerbation of emphysema Current visit: No Status: Acute (3) COPD exacerbation Current visit: No Status: Acute Assessment and Plan: restarted the pt's steroids with solumedrol 125 Q6, supplemental oxygen, consulted respiratory therapy to assess if pt needs home oxygen, cont breathing tx, empiric doxy, restart home meds. - Physician Narrative Narrative: Date: 01/22/18 Time: 8 Hospital Course Summary Disclaimer: The visit summary below is not to be considered part of the above Progress Note.
[2018-01-22] MEDS: METHYLPREDNISOLONE SOD SUCC 125mg/2ml INJECTION IVP SCH ×4 (06:21→21:46)
--- NOTE | 2018-01-22 07:25 | XRay Report ---
INDICATION: soa PROCEDURE: CHEST 2-VIEWS UPRIGHT (PA & LAT) Encounter: Initial COMPARISON: December 30, 2017 FINDINGS: Hyperinflation with chronic calcified nodules in the right middle lobe. No lobar pneumonia. There is no pleural effusion or pneumothorax. The heart size, mediastinal contours and pulmonary vascularity are within normal limits. There is no significant skeletal abnormality. IMPRESSION: Stable chest without acute cardiopulmonary disease. .
[2018-01-22] MEDS: ALBUTEROL/IPRATROPIUM 2.5mg-0.5mg/3ml NEB AEROSOL PRN ×3 (08:50→23:21)
[2018-01-22] MEDS: SALINE FLUSH 10ml SYRINGE IV PRN ×2 (17:33→21:46)
[2018-01-22] MEDS ORDERED: ROSUVASTATIN 20 MG TABLET PO SCH (21:00)
[2018-01-23] MEDS: SALINE FLUSH 10ml SYRINGE IV PRN ×2 (03:17→09:17)
[2018-01-23] MEDS: METHYLPREDNISOLONE SOD SUCC 125mg/2ml INJECTION IVP SCH ×3 (03:17→15:00)
[2018-01-23] MEDS: ALBUTEROL/IPRATROPIUM 2.5mg-0.5mg/3ml NEB AEROSOL PRN (06:20)
[2018-01-23] MEDS: ALBUTEROL/IPRATROPIUM 2.5mg-0.5mg/3ml NEB AEROSOL SCH ×2 (10:30→14:39)
[2018-01-23 14:50] VITALS: RESP 18
[2018-01-23 16:19] VITALS: BP 125/58; PULSE 96; TEMP 97.5; O2SAT 95
--- NOTE | 2018-01-23 17:44 | Discharge Summary ---
Discharge Information Date of admission: 01/22/18 13:15 Anticipated date of discharge: 01/23/18 Attending Physician: Antony Hedrick MD Primary care physician: Naman Lobato MD - Discharge Diagnosis (1) Acute exacerbation of emphysema Status: Acute (2) COPD exacerbation Status: Acute (3) Hypoxia Status: Acute Acute COPD exacerbation - Laboratory Labs: 01/22/18 00:53 01/22/18 00:53 History of Present Illness HPI: The pt is a 72 yo with known COPD who quit smoking 7 years ago and started having SOB, cough and dsypnea over the past several months. She was admitted to our facility from 12/30-01/02, discharged on Prednsione taper. She completed the steroids on 01/12, but started having more difficulty on 01/18. At home she reports her Sa)2- 82%, but high 80's in ER. no sputum production, no fevers or chills. THe pt believes her symptoms and flare is due to wheat harvest and work around her yard. Objective Vital signs: Temperature 97.5 F 01/23/18 16:00 Pulse Rate 96 01/23/18 16:00 Respiratory Rate 18 01/23/18 16:00 Blood Pressure 125/58 01/23/18 16:00 Pulse Oximetry 95 01/23/18 16:00 Rhythm: Normal Sinus Rhythm Height/Weight/BMI: Height 5 ft 5 in Weight 54 kg Body Mass Index 20.1 - Constitutional Present: well developed, thin, cooperative - Routine HEENT Exam Head: Present: normocephalic, atraumatic Eye: Present: EOMI ENT: Present: mucous membranes moist, dentition normal - Routine Respiratory Exam Present: CTA bilaterally, diminished air movement. Absent: wheezes - Routine Cardiovascular Exam Present: RRR, S1, S2. Absent: murmur - Routine Abdominal Exam Present: soft, normoactive bowel sounds, non distended. Absent: tenderness - Routine Extremities Exam Present: normal capillary refill - Routine Skin Exam Present: dry, warm - Routine Neurological Exam Present: alert, oriented X3, CN II-XII intact - Routine Lymphatic Exam Lymphatic: Absent: adenopathy - Routine Psychiatric Exam Present: normal affect Hospital Course This is a general summary of the patient's hospital course. For more details refer to the complete medical record. Hospital course: This is 72-year-old patient with a long-term diagnosis of COPD who has for greater than a year been postponing her commencement of supplemental oxygen. She has had several episodes of hospitalization inpatient and observation over the last few years for exacerbations and this episode happened similar to prior' s: she is exposed to a particular exacerbating agent such as hay or in this case cut grass and developed worsening distress and admitted to the emergency room in respiratory extremis. She's responded well to initial high doses of steroids tapering down very quickly and is on an appropriate combination of SQ beta agonist and maintenance long-acting and anticholinergics with honored inhaled steroids. We held her for an additional day to attempt to wean her off of supplemental oxygen as we had prior. In the past she had managed to improved to 90% O2 saturation on room air but only marginally. This time she was not so morena and failed a walking respiratory eval with O2 saturations well below 88% with activity. She has had home O2 ordered and is awaiting a concentrator for arrival in her home. At this time I am writing for 5 mg steroid dose to be a maintenance for the next few weeks before slowly tapering off under the continued observation of her primary care doctor or Dr. Brar in pulmonology whom she has seen before. Time spent with patient: greater than 35 minutes Resuscitation Status: Full Code Discharge Plan - Discharge Disposition Disposition: Discharged Home, Self-Care *Condition: Stable Reason For Visit (Visit label in EMR): copd exac - Discharge Medications *Discharge Medications: New PredniSONE [Deltasone 5 mg] 5 mg PO DAILY #30 tab Continue Ipatropium/Albuterol [Combivent Respimat Inhaler] 1 puff IH Q4HPRN PRN PRN Reason: Dyspnea Rosuvastatin [Crestor] 1 tab PO HS Calcium 1,200 mg PO DAILY PEG 3350 17gm PACKET [Miralax] 17 gm PO DAILY PRN #1 bottle PRN Reason: Constipation Magnesium Oxide 500 mg PO DAILY DiphenhydrAMINE [Benadryl] 1 cap PO Q6H PRN PRN Reason: allergy Ibuprofen 400 tab PO Q4H PRN PRN Reason: Pain Breo Ellipta (fluticasone 100 mcg-vilanterol 25 mcg/dose) powder for inhalation 1 puff INH DAILY - Discharge Packet/Instructions *Diet: Routine regular diet *Activity: Increase is tolerated *Pain Management/Treatment: [id number] medicines were needed *Wound Care: None - Referrals/Follow Up - Patient Handouts Patient Handouts: COPD (Chronic Obstructive Pulmonary Disease) (GEN) - Dismissal Complete Discharge Instructions are:: Complete Physician Narrative - Narrative Physician: Lata Gautam MD, other Attestation Narrative: Date: 01/23/18 Time: 3162
== END 2018-01-23 18:10 | disposition home or self-care (01) | DRG 192 ==
LOC: EDHOLD 22:25 → ED 22:25 → SUATTDRO 01-22 02:38 → MED 01-22 03:05
PROVIDERS: ADMIT Internal Medicine; ATTEND Family Medicine